=== PATIENT | female | born 1985 | race Caucasian/White ===

== ENCOUNTER 2017-06-18 14:52 | Emergency (ER) | payer MEDICAID, OTHER ==
[~2017-06-18] VITALS: Ht 175.3 cm; Wt 166.0 kg
[~2017-06-18 14:52] MED LIST: ALBU0.63 NEB; AMOX1TAB64 PO; ZOLP10TA5 PO
[2017-06-18 15:30] LABS: HEMATOCRIT 41.3 % (34.6-47.8); HEMOGLOBIN 13.9 g/dL (11.7-16.4); WHITE BLOOD COUNT 9.1 x10^3/uL (3.4-10)
[2017-06-18] MEDS ORDERED: SODIUM CHLORIDE 0.9% 1,000ML IVBOLUS ONE ×2 (15:30→16:00)
[2017-06-18] MEDS ORDERED: SODIUM CHLORIDE FLUSH 10ML SYR IVF ONE (15:30)
[2017-06-18 15:42] LABS: BLOOD UREA NITROGEN 12 mg/dL (7-18)
[2017-06-18] MEDS ORDERED: LORazepam 2 MG/ML, 1ML IVPush ONE (16:00)
[2017-06-18] MEDS ORDERED: MORPHINE SULFATE 4 MG/ML, 1ML IVPush PRN (16:00)
[2017-06-18] MEDS ORDERED: ONDANSETRON 2MG/ML, 2ML IVPush ONE (16:00)
[2017-06-18] MEDS ORDERED: MORPHINE SULFATE 4 MG/ML, 1ML ONE (16:05)
[2017-06-18] MEDS ORDERED: ONDANSETRON 2MG/ML, 2ML ONE (16:05)
[2017-06-18] MEDS ORDERED: LORazepam 2 MG/ML, 1ML ONE (16:06)
[2017-06-18 17:33] VITALS: BP 137/78
[2017-06-18] MEDS ORDERED: KETOROLAC 30 MG/1 ML ONE (17:59)
[2017-06-18] MEDS ORDERED: KETOROLAC 30 MG/1 ML IM ONE (18:00)
== END 2017-06-18 18:13 | disposition home or self-care (01) ==
LOC: ED 18:05
DX: G43.119 Migraine with aura, intractable, without status migrainosus (principal); G44.211 Episodic tension-type headache, intractable; I10 Essential (primary) hypertension; F17.200 Nicotine dependence, unspecified, uncomplicated; Z88.2 Allergy status to sulfonamides
CPT/HCPCS: 36415; 70450; 71010; 80048; 82040; 84703; 85025; 93005; 96361; 96372; 96374; 96375; 99285; J1885; J2060; J2405; J7030